=== PATIENT | male | born 1965 | race Caucasian/White ===

== ENCOUNTER 2020-04-25 20:23 | Inpatient (IN) | payer OTHER ==
[2020-04-25] MEDS ORDERED: Sodium Chloride 0.9% 1000 ML 1,000 ML IV STA (20:42)
[2020-04-25] MEDS ORDERED: Ativan 2 MG/1 ML VIAL IV ONE ×2 (20:42→22:01)
--- NOTE | 2020-04-25 20:42 | ERPHSYRPT ---
- History of Present Illness Time Seen by Provider: 04/25/20 20:37 Source: patient, EMS Exam Limitations: clinical condition Physician History: This is a 54-year-old white male who presents for the first time to this emergency department with seizure-like episode followed by post ictal symptoms. 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 In addition he has has a chronic subcutaneous abscess wounds that are being treated as an outpatient with wound care management and intravenous antibiotics on his back. Patient has no known seizure disorder. Patient has had difficulties speaking and level of confusion since the seizure episode. Patient arrives via ambulance service and his spouse will be arriving to the emergency department after obtaining lab work for herself. Patient is a poor historian. Timing/Duration: today Severity: moderate Associated Symptoms: seizure, No shortness of breath, No chest pain Allergies/Adverse Reactions: No Known Drug Allergies Allergy (Verified 04/25/20 21:10) Home Medications: Amlodipine Besylate 10 mg PO DAILY 04/25/20 [History] Baclofen 20 mg PO 04/25/20 [History] Gabapentin 100 mg PO TID PRN 04/25/20 [History] Lisinopril 10 mg [Zestril 10 MG] 10 mg PO DAILY 04/25/20 [History] Metformin HCl 500 mg [Glucophage 500 MG] 500 mg PO DAILY 04/25/20 [History] Methocarbamol 500 mg [Robaxin 500 MG] 500 mg PO TID 04/25/20 [History] Travel Risk - International Travel Have you traveled outside of the country in past 3 weeks: No - Coronavirus Screening Are you exhibiting any of the following symptoms?: No Close contact with a COVID-19 positive Pt in past 14-21 Days: No - Review of Systems Constitutional: No Symptoms Eyes: No Symptoms Ears, Nose, & Throat: No Symptoms Respiratory: No Symptoms Cardiac: No Symptoms Abdominal/Gastrointestinal: No Symptoms Genitourinary Symptoms: No Symptoms Musculoskeletal: No Symptoms Skin: No Symptoms Neurological: No Symptoms Psychological: No Symptoms Endocrine: No Symptoms Hematologic/Lymphatic: No Symptoms Immunological/Allergic: No Symptoms All Other Systems: Reviewed and Negative - Past Medical History Pertinent Past Medical History: Yes - Past Surgical History Past Surgical History: Yes - Nursing Vital Signs Nursing Vital Signs: Initial Vital Signs Temperature 96.8 F 04/25/20 20:33 Pulse Rate 80 04/25/20 20:33 Respiratory Rate 18 04/25/20 20:33 Blood Pressure 133/73 04/25/20 20:33 O2 Sat by Pulse Oximetry 93 L 04/25/20 20:33 Pain Scale Pain Intensity 0 - Physical Exam General Appearance: no apparent distress, alert, anxiety Eye Exam: PERRL/EOMI, eyes nml inspection Ears, Nose, Throat Exam: normal ENT inspection, moist mucous membranes Neck Exam: normal inspection, non-tender, supple, full range of motion Respiratory Exam: normal breath sounds, lungs clear, airway intact, No chest tenderness, No respiratory distress Cardiovascular Exam: regular rate/rhythm, normal heart sounds, normal peripheral pulses Gastrointestinal/Abdomen Exam: soft, normal bowel sounds, other (Ostomy site is pink and functioning.), No tenderness Rectal Exam: not done Back Exam: normal inspection, normal range of motion, No CVA tenderness, No vertebral tenderness Neurologic Exam: alert, oriented x 3, cooperative, 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 Skin Exam: normal color, warm, dry Lymphatic Exam: No adenopathy SpO2 Interpretation: normal O2 Delivery: Room Air - Course Nursing assessment & vital signs reviewed: Yes EKG Interpreted by Me: RATE (87), Sinus Rhythm, NORMAL AXIS, NORMAL INTERVALS, NORMAL QRS, Right Bundle Branch Block, Other (No comparison EKG) Ordered Tests: Active Orders 24 hr Category Date Time Status Other Sales Support Worker STAT Care 04/25/20 20:43 Active EKG-ER Only STAT Care 04/25/20 20:42 Active Pritchard [Catheter-[place] Pritchard] STAT Care 04/25/20 22:09 Active IV Insertion STAT Care 04/25/20 20:42 Active Pulse Oximetry (ED) STAT Care 04/25/20 20:42 Active CHEST 1 VIEW (PORTABLE) Stat Exams 04/25/20 22:34 Taken CHEST WITH CONTRAST [CT] Stat Exams 04/26/20 00:02 Ordered HEAD WITHOUT CONTRAST [CT] Stat Exams 04/25/20 20:43 Taken ABG [ARTERIAL BLOOD GASES] Stat Lab 04/25/20 22:40 Completed CBC W DIFF Stat Lab 04/25/20 20:59 Completed CMP Stat Lab 04/25/20 20:59 Completed CULTURE,URINE Stat Lab 04/25/20 22:25 Received D-DIMER QUANTITATIVE Stat Lab 04/25/20 22:32 Completed INFLUENZA A+B BG Stat Lab 04/25/20 22:32 Completed Manual Differential NC Stat Lab 04/25/20 20:59 Completed POCT GLUCOSE Stat Lab 04/25/20 20:28 Completed UA W/RFX UR CULTURE Stat Lab 04/25/20 22:25 Completed Urine Triage Profile Stat Lab 04/25/20 22:25 Completed Transfer Order Routine Transfer 04/26/20 Ordered Medication Summary Discontinued Medications Generic Name Dose Route Start Last Admin Trade Name Freq PRN Reason Stop Dose Admin Dexamethasone Sodium Phosphate 8 mg 04/26/20 01:20 Decadron 4 Mg Inj IV 04/26/20 01:21 STAT ONE Sodium Chloride 1,000 mls @ 999 mls/hr 04/25/20 20:42 04/25/20 21:57 Sodium Chloride 0.9% 1000 Ml IV 04/25/20 21:42 999 mls/hr .Q1H1M STA Administration Sodium Chloride Confirm 04/25/20 21:56 Sodium Chloride 0.9% 1000 Ml Administered 04/25/20 21:57 Dose 1,000 mls @ ud .ROUTE .STK-MED ONE Levofloxacin/Dextrose 500 mg in 100 mls @ 100 mls/hr 04/25/20 23:06 04/26/20 01:03 Levofloxacin 500mg/100ml D5w IV 04/26/20 00:05 100 ml/hr STAT STA 100 mls/hr Administration Levofloxacin/Dextrose Confirm 04/26/20 01:02 Levofloxacin 500mg/100ml D5w Administered 04/26/20 01:03 Dose 500 mg in 100 mls @ ud IV .STK-MED ONE Lorazepam 1 mg 04/25/20 20:42 Ativan 2 Mg/1 Ml Vial IV 04/25/20 20:43 STAT ONE Lorazepam Confirm 04/25/20 21:42 Ativan 2 Mg/1 Ml Vial Administered 04/25/20 21:43 Dose 2 mg .ROUTE .STK-MED ONE Lorazepam 2 mg 04/25/20 22:01 04/25/20 21:44 Ativan 2 Mg/1 Ml Vial IV 04/25/20 22:02 2 mg STAT ONE Administration Lab/Rad Data: Laboratory Result Diagrams 04/25/20 20:59 04/25/20 20:59 Laboratory Results 04/25/20 04/25/20 04/25/20 Range/Units Unknown 23:55 22:46 WBC (4.0-10.5) K/mm3 RBC (4.1-5.6) M/mm3 Hgb (12.5-18.0) gm/dl Hct (42-50) % MCV (78-100) fl MCH (26-32) pg MCHC (32-36) g/dl RDW (11.5-14.0) % Plt Count (150-450) K/mm3 MPV (7.5-11.0) fl Segmented Neutrophils (36.-66.) % Lymphocytes (Manual) (24-44) % Monocytes (Manual) (0.0-12.0) % Toxic Granulation Platelet Estimate (NORMAL) RBC Morphology D-Dimer (215-500) ng/mL Puncture Site pCO2 (35-45) mmHg pO2 (75-100) mmHg Base Excess (-2.0-2.0) O2 Saturation (94-100) g/dF ABG pH (7.35-7.45) ABG HCO3 (22-28) ABG O2 Sat (Measured) (95-100) % Simone Test A-a Gradient a/A Ratio Hemoglobin Carboxyhemoglobin (0.0-6.9) % THgb Methemoglobin (1.4-1.5) % Temperature C POC O2 Flow Rate % Sodium (137-145) mmol/L Potassium (3.5-5.1) mmol/L Chloride (98-107) mmol/L Carbon Dioxide (22-30) mmol/L Anion Gap (5-15) MEQ/L BUN (9-20) mg/dL Creatinine (0.66-1.25) mg/dL Estimated GFR ML/MIN Glucose (74-106) mg/dL POC Glucometer (74 to 106) mg/dL Calcium (8.4-10.2) mg/dL Total Bilirubin (0.2-1.3) mg/dL AST (17-59) U/L ALT (0-50) U/L Alkaline Phosphatase (38-126) U/L Ammonia < 9 L (9-30) umol/L Serum Total Protein (6.3-8.2) g/dL Albumin (3.5-5.0) g/dL Urine Color (YELLOW) Urine Appearance (CLEAR) Urine pH (5-6) Ur Specific Bone Gap (1.005-1.025) Urine Protein (Negative) Urine Ketones (NEGATIVE) Urine Blood (0-5) Collin/ul Urine Nitrite (NEGATIVE) Urine Bilirubin (NEGATIVE) Urine Urobilinogen (0-1) mg/dL Ur Leukocyte Esterase (NEGATIVE) Urine WBC (Auto) (0-5) /HPF Urine RBC (Auto) (0-2) /HPF U Epithel Cells (Auto) (FEW) /HPF Urine Bacteria (Auto) (NEGATIVE) /HPF Amorphous Crystals (NEGATIVE) /HPF Urine Mucus (Auto) (NEGATIVE) /HPF Urine Culture Reflexed (NO) Urine Glucose (NEGATIVE) mg/dL Stl C. cayetanensis PCR (NEGATIVE) Stl Adenov F 40/41 PCR (NEGATIVE) Stool Astrovirus (PCR) (NEGATIVE) Stool Cryptosporidium PCR (NEGATIVE) Stool EPEC (PCR) (NEGATIVE) Stool EAEC (PCR) (NEGATIVE) Stl E. histolytica PCR (NEGATIVE) Stl P. shigelloides PCR (NEGATIVE) Stool Sapovirus (PCR) (NEGATIVE) St Y.enterocolitica PCR (NEGATIVE) Stool Vibrio (PCR) (NEGATIVE) Stl Vibrio cholerae PCR (NEGATIVE) Stl Norovirus GI/GII PCR (NEGATIVE) Urine Opiates Level (NEGATIVE) Ur Methadone (NEGATIVE) Urine Barbiturates (NEGATIVE) Ur Phencyclidine (PCP) (NEGATIVE) Urine Amphetamine (NEGATIVE) U Benzodiazepine Level (NEGATIVE) Urine Cocaine (NEGATIVE) Urine Marijuana (THC) (NEGATIVE) Campylobacter (PCR) (NEGATIVE) C. difficile (PCR) (NEGATIVE) Enterotoxigenic E. coli (NEGATIVE) E.coli Shiga Toxins (NEGATIVE) Giardia lamblia (NEGATIVE) Monoscreen NEGATIVE (Negative) Influenza Type A Ag (NEGATIVE) Influenza Type B Ag (NEGATIVE) Rotavirus A (PCR) (NEGATIVE) Salmonella (PCR) (NEGATIVE) SARS-CoV-2 (PCR) POSITIVE A (NEGATIVE) Shigella (PCR) (NEGATIVE) Group A Strep Antibody (NEGATIVE) 04/25/20 04/25/20 04/25/20 Range/Units 22:40 22:32 22:32 WBC (4.0-10.5) K/mm3 RBC (4.1-5.6) M/mm3 Hgb (12.5-18.0) gm/dl Hct (42-50) % MCV (78-100) fl MCH (26-32) pg MCHC (32-36) g/dl RDW (11.5-14.0) % Plt Count (150-450) K/mm3 MPV (7.5-11.0) fl Segmented Neutrophils (36.-66.) % Lymphocytes (Manual) (24-44) % Monocytes (Manual) (0.0-12.0) % Toxic Granulation Platelet Estimate (NORMAL) RBC Morphology D-Dimer 2112 H* (215-500) ng/mL Puncture Site LEFT RADIAL pCO2 45 (35-45) mmHg pO2 69 L (75-100) mmHg Base Excess 0.3 (-2.0-2.0) O2 Saturation 91.5 L (94-100) g/dF ABG pH 7.37 (7.35-7.45) ABG HCO3 26.0 (22-28) ABG O2 Sat (Measured) 94.0 L (95-100) % Simone Test NOT APPLICABLE A-a Gradient 231 a/A Ratio 0.23 Hemoglobin 14.2 Carboxyhemoglobin 1.8 (0.0-6.9) % THgb Methemoglobin 0.8 L (1.4-1.5) % Temperature 37.0 C POC O2 Flow Rate 50 % Sodium (137-145) mmol/L Potassium 3.8 (3.5-5.1) mmol/L Chloride (98-107) mmol/L Carbon Dioxide (22-30) mmol/L Anion Gap (5-15) MEQ/L BUN (9-20) mg/dL Creatinine (0.66-1.25) mg/dL Estimated GFR ML/MIN Glucose (74-106) mg/dL POC Glucometer (74 to 106) mg/dL Calcium (8.4-10.2) mg/dL Total Bilirubin (0.2-1.3) mg/dL AST (17-59) U/L ALT (0-50) U/L Alkaline Phosphatase (38-126) U/L Ammonia (9-30) umol/L Serum Total Protein (6.3-8.2) g/dL Albumin (3.5-5.0) g/dL Urine Color (YELLOW) Urine Appearance (CLEAR) Urine pH (5-6) Ur Specific Bone Gap (1.005-1.025) Urine Protein (Negative) Urine Ketones (NEGATIVE) Urine Blood (0-5) Collin/ul Urine Nitrite (NEGATIVE) Urine Bilirubin (NEGATIVE) Urine Urobilinogen (0-1) mg/dL Ur Leukocyte Esterase (NEGATIVE) Urine WBC (Auto) (0-5) /HPF Urine RBC (Auto) (0-2) /HPF U Epithel Cells (Auto) (FEW) /HPF Urine Bacteria (Auto) (NEGATIVE) /HPF Amorphous Crystals (NEGATIVE) /HPF Urine Mucus (Auto) (NEGATIVE) /HPF Urine Culture Reflexed (NO) Urine Glucose (NEGATIVE) mg/dL Stl C. cayetanensis PCR (NEGATIVE) Stl Adenov F 40/41 PCR (NEGATIVE) Stool Astrovirus (PCR) (NEGATIVE) Stool Cryptosporidium PCR (NEGATIVE) Stool EPEC (PCR) (NEGATIVE) Stool EAEC (PCR) (NEGATIVE) Stl E. histolytica PCR (NEGATIVE) Stl P. shigelloides PCR (NEGATIVE) Stool Sapovirus (PCR) (NEGATIVE) St Y.enterocolitica PCR (NEGATIVE) Stool Vibrio (PCR) (NEGATIVE) Stl Vibrio cholerae PCR (NEGATIVE) Stl Norovirus GI/GII PCR (NEGATIVE) Urine Opiates Level (NEGATIVE) Ur Methadone (NEGATIVE) Urine Barbiturates (NEGATIVE) Ur Phencyclidine (PCP) (NEGATIVE) Urine Amphetamine (NEGATIVE) U Benzodiazepine Level (NEGATIVE) Urine Cocaine (NEGATIVE) Urine Marijuana (THC) (NEGATIVE) Campylobacter (PCR) (NEGATIVE) C. difficile (PCR) (NEGATIVE) Enterotoxigenic E. coli (NEGATIVE) E.coli Shiga Toxins (NEGATIVE) Giardia lamblia (NEGATIVE) Monoscreen (Negative) Influenza Type A Ag (NEGATIVE) Influenza Type B Ag (NEGATIVE) Rotavirus A (PCR) (NEGATIVE) Salmonella (PCR) (NEGATIVE) SARS-CoV-2 (PCR) (NEGATIVE) Shigella (PCR) (NEGATIVE) Group A Strep Antibody NOT DETECTED (NEGATIVE) 04/25/20 04/25/20 04/25/20 Range/Units 22:32 22:25 22:25 WBC (4.0-10.5) K/mm3 RBC (4.1-5.6) M/mm3 Hgb (12.5-18.0) gm/dl Hct (42-50) % MCV (78-100) fl MCH (26-32) pg MCHC (32-36) g/dl RDW (11.5-14.0) % Plt Count (150-450) K/mm3 MPV (7.5-11.0) fl Segmented Neutrophils (36.-66.) % Lymphocytes (Manual) (24-44) % Monocytes (Manual) (0.0-12.0) % Toxic Granulation Platelet Estimate (NORMAL) RBC Morphology D-Dimer (215-500) ng/mL Puncture Site pCO2 (35-45) mmHg pO2 (75-100) mmHg Base Excess (-2.0-2.0) O2 Saturation (94-100) g/dF ABG pH (7.35-7.45) ABG HCO3 (22-28) ABG O2 Sat (Measured) (95-100) % Simone Test A-a Gradient a/A Ratio Hemoglobin Carboxyhemoglobin (0.0-6.9) % THgb Methemoglobin (1.4-1.5) % Temperature C POC O2 Flow Rate % Sodium (137-145) mmol/L Potassium (3.5-5.1) mmol/L Chloride (98-107) mmol/L Carbon Dioxide (22-30) mmol/L Anion Gap (5-15) MEQ/L BUN (9-20) mg/dL Creatinine (0.66-1.25) mg/dL Estimated GFR ML/MIN Glucose (74-106) mg/dL POC Glucometer (74 to 106) mg/dL Calcium (8.4-10.2) mg/dL Total Bilirubin (0.2-1.3) mg/dL AST (17-59) U/L ALT (0-50) U/L Alkaline Phosphatase (38-126) U/L Ammonia (9-30) umol/L Serum Total Protein (6.3-8.2) g/dL Albumin (3.5-5.0) g/dL Urine Color DRU (YELLOW) Urine Appearance CLOUDY (CLEAR) Urine pH 6.0 (5-6) Ur Specific Bone Gap 1.022 (1.005-1.025) Urine Protein >=500 (Negative) Urine Ketones SMALL (NEGATIVE) Urine Blood SMALL (0-5) Collin/ul Urine Nitrite POSITIVE (NEGATIVE) Urine Bilirubin MODERATE (NEGATIVE) Urine Urobilinogen NEGATIVE (0-1) mg/dL Ur Leukocyte Esterase LARGE (NEGATIVE) Urine WBC (Auto) >100 (0-5) /HPF Urine RBC (Auto) 51-100 (0-2) /HPF U Epithel Cells (Auto) NONE (FEW) /HPF Urine Bacteria (Auto) RARE (NEGATIVE) /HPF Amorphous Crystals FEW (NEGATIVE) /HPF Urine Mucus (Auto) SLIGHT (NEGATIVE) /HPF Urine Culture Reflexed YES (NO) Urine Glucose NEGATIVE (NEGATIVE) mg/dL Stl C. cayetanensis PCR (NEGATIVE) Stl Adenov F 40/41 PCR (NEGATIVE) Stool Astrovirus (PCR) (NEGATIVE) Stool Cryptosporidium PCR (NEGATIVE) Stool EPEC (PCR) (NEGATIVE) Stool EAEC (PCR) (NEGATIVE) Stl E. histolytica PCR (NEGATIVE) Stl P. shigelloides PCR (NEGATIVE) Stool Sapovirus (PCR) (NEGATIVE) St Y.enterocolitica PCR (NEGATIVE) Stool Vibrio (PCR) (NEGATIVE) Stl Vibrio cholerae PCR (NEGATIVE) Stl Norovirus GI/GII PCR (NEGATIVE) Urine Opiates Level POSITIVE (NEGATIVE) Ur Methadone NEGATIVE (NEGATIVE) Urine Barbiturates NEGATIVE (NEGATIVE) Ur Phencyclidine (PCP) NEGATIVE (NEGATIVE) Urine Amphetamine NEGATIVE (NEGATIVE) U Benzodiazepine Level NEGATIVE (NEGATIVE) Urine Cocaine NEGATIVE (NEGATIVE) Urine Marijuana (THC) NEGATIVE (NEGATIVE) Campylobacter (PCR) (NEGATIVE) C. difficile (PCR) (NEGATIVE) Enterotoxigenic E. coli (NEGATIVE) E.coli Shiga Toxins (NEGATIVE) Giardia lamblia (NEGATIVE) Monoscreen (Negative) Influenza Type A Ag NEGATIVE (NEGATIVE) Influenza Type B Ag NEGATIVE (NEGATIVE) Rotavirus A (PCR) (NEGATIVE) Salmonella (PCR) (NEGATIVE) SARS-CoV-2 (PCR) (NEGATIVE) Shigella (PCR) (NEGATIVE) Group A Strep Antibody (NEGATIVE) 04/25/20 04/25/20 04/25/20 Range/Units 22:02 20:59 20:59 WBC 9.0 (4.0-10.5) K/mm3 RBC 5.11 (4.1-5.6) M/mm3 Hgb 15.0 (12.5-18.0) gm/dl Hct 46.5 (42-50) % MCV 91.0 (78-100) fl MCH 29.4 (26-32) pg MCHC 32.3 (32-36) g/dl RDW 13.9 (11.5-14.0) % Plt Count 361 (150-450) K/mm3 MPV 10.5 (7.5-11.0) fl Segmented Neutrophils 83 H (36.-66.) % Lymphocytes (Manual) 9 L (24-44) % Monocytes (Manual) 8 (0.0-12.0) % Toxic Granulation 1+ Platelet Estimate NORMAL (NORMAL) RBC Morphology NORMAL D-Dimer (215-500) ng/mL Puncture Site pCO2 (35-45) mmHg pO2 (75-100) mmHg Base Excess (-2.0-2.0) O2 Saturation (94-100) g/dF ABG pH (7.35-7.45) ABG HCO3 (22-28) ABG O2 Sat (Measured) (95-100) % Simone Test A-a Gradient a/A Ratio Hemoglobin Carboxyhemoglobin (0.0-6.9) % THgb Methemoglobin (1.4-1.5) % Temperature C POC O2 Flow Rate % Sodium 140 (137-145) mmol/L Potassium 4.0 (3.5-5.1) mmol/L Chloride 105 (98-107) mmol/L Carbon Dioxide 27 (22-30) mmol/L Anion Gap 12.1 (5-15) MEQ/L BUN 23 H (9-20) mg/dL Creatinine 1.12 (0.66-1.25) mg/dL Estimated GFR > 60.0 ML/MIN Glucose 188 H (74-106) mg/dL POC Glucometer (74 to 106) mg/dL Calcium 9.3 (8.4-10.2) mg/dL Total Bilirubin 1.10 (0.2-1.3) mg/dL AST 40 (17-59) U/L ALT 42 (0-50) U/L Alkaline Phosphatase 83 (38-126) U/L Ammonia (9-30) umol/L Serum Total Protein 8.4 H (6.3-8.2) g/dL Albumin 4.0 (3.5-5.0) g/dL Urine Color (YELLOW) Urine Appearance (CLEAR) Urine pH (5-6) Ur Specific Bone Gap (1.005-1.025) Urine Protein (Negative) Urine Ketones (NEGATIVE) Urine Blood (0-5) Collin/ul Urine Nitrite (NEGATIVE) Urine Bilirubin (NEGATIVE) Urine Urobilinogen (0-1) mg/dL Ur Leukocyte Esterase (NEGATIVE) Urine WBC (Auto) (0-5) /HPF Urine RBC (Auto) (0-2) /HPF U Epithel Cells (Auto) (FEW) /HPF Urine Bacteria (Auto) (NEGATIVE) /HPF Amorphous Crystals (NEGATIVE) /HPF Urine Mucus (Auto) (NEGATIVE) /HPF Urine Culture Reflexed (NO) Urine Glucose (NEGATIVE) mg/dL Stl C. cayetanensis PCR NEGATIVE (NEGATIVE) Stl Adenov F 40/41 PCR NEGATIVE (NEGATIVE) Stool Astrovirus (PCR) NEGATIVE (NEGATIVE) Stool Cryptosporidium PCR NEGATIVE (NEGATIVE) Stool EPEC (PCR) NEGATIVE (NEGATIVE) Stool EAEC (PCR) NEGATIVE (NEGATIVE) Stl E. histolytica PCR NEGATIVE (NEGATIVE) Stl P. shigelloides PCR NEGATIVE (NEGATIVE) Stool Sapovirus (PCR) NEGATIVE (NEGATIVE) St Y.enterocolitica PCR NEGATIVE (NEGATIVE) Stool Vibrio (PCR) NEGATIVE (NEGATIVE) Stl Vibrio cholerae PCR NEGATIVE (NEGATIVE) Stl Norovirus GI/GII PCR NEGATIVE (NEGATIVE) Urine Opiates Level (NEGATIVE) Ur Methadone (NEGATIVE) Urine Barbiturates (NEGATIVE) Ur Phencyclidine (PCP) (NEGATIVE) Urine Amphetamine (NEGATIVE) U Benzodiazepine Level (NEGATIVE) Urine Cocaine (NEGATIVE) Urine Marijuana (THC) (NEGATIVE) Campylobacter (PCR) NEGATIVE (NEGATIVE) C. difficile (PCR) NEGATIVE (NEGATIVE) Enterotoxigenic E. coli NEGATIVE (NEGATIVE) E.coli Shiga Toxins NEGATIVE (NEGATIVE) Giardia lamblia NEGATIVE (NEGATIVE) Monoscreen (Negative) Influenza Type A Ag (NEGATIVE) Influenza Type B Ag (NEGATIVE) Rotavirus A (PCR) NEGATIVE (NEGATIVE) Salmonella (PCR) NEGATIVE (NEGATIVE) SARS-CoV-2 (PCR) (NEGATIVE) Shigella (PCR) NEGATIVE (NEGATIVE) Group A Strep Antibody (NEGATIVE) 04/25/20 Range/Units 20:28 WBC (4.0-10.5) K/mm3 RBC (4.1-5.6) M/mm3 Hgb (12.5-18.0) gm/dl Hct (42-50) % MCV (78-100) fl MCH (26-32) pg MCHC (32-36) g/dl RDW (11.5-14.0) % Plt Count (150-450) K/mm3 MPV (7.5-11.0) fl Segmented Neutrophils (36.-66.) % Lymphocytes (Manual) (24-44) % Monocytes (Manual) (0.0-12.0) % Toxic Granulation Platelet Estimate (NORMAL) RBC Morphology D-Dimer (215-500) ng/mL Puncture Site pCO2 (35-45) mmHg pO2 (75-100) mmHg Base Excess (-2.0-2.0) O2 Saturation (94-100) g/dF ABG pH (7.35-7.45) ABG HCO3 (22-28) ABG O2 Sat (Measured) (95-100) % Simone Test A-a Gradient a/A Ratio Hemoglobin Carboxyhemoglobin (0.0-6.9) % THgb Methemoglobin (1.4-1.5) % Temperature C POC O2 Flow Rate % Sodium (137-145) mmol/L Potassium (3.5-5.1) mmol/L Chloride (98-107) mmol/L Carbon Dioxide (22-30) mmol/L Anion Gap (5-15) MEQ/L BUN (9-20) mg/dL Creatinine (0.66-1.25) mg/dL Estimated GFR ML/MIN Glucose (74-106) mg/dL POC Glucometer 176 H (74 to 106) mg/dL Calcium (8.4-10.2) mg/dL Total Bilirubin (0.2-1.3) mg/dL AST (17-59) U/L ALT (0-50) U/L Alkaline Phosphatase (38-126) U/L Ammonia (9-30) umol/L Serum Total Protein (6.3-8.2) g/dL Albumin (3.5-5.0) g/dL Urine Color (YELLOW) Urine Appearance (CLEAR) Urine pH (5-6) Ur Specific Bone Gap (1.005-1.025) Urine Protein (Negative) Urine Ketones (NEGATIVE) Urine Blood (0-5) Collin/ul Urine Nitrite (NEGATIVE) Urine Bilirubin (NEGATIVE) Urine Urobilinogen (0-1) mg/dL Ur Leukocyte Esterase (NEGATIVE) Urine WBC (Auto) (0-5) /HPF Urine RBC (Auto) (0-2) /HPF U Epithel Cells (Auto) (FEW) /HPF Urine Bacteria (Auto) (NEGATIVE) /HPF Amorphous Crystals (NEGATIVE) /HPF Urine Mucus (Auto) (NEGATIVE) /HPF Urine Culture Reflexed (NO) Urine Glucose (NEGATIVE) mg/dL Stl C. cayetanensis PCR (NEGATIVE) Stl Adenov F 40/41 PCR (NEGATIVE) Stool Astrovirus (PCR) (NEGATIVE) Stool Cryptosporidium PCR (NEGATIVE) Stool EPEC (PCR) (NEGATIVE) Stool EAEC (PCR) (NEGATIVE) Stl E. histolytica PCR (NEGATIVE) Stl P. shigelloides PCR (NEGATIVE) Stool Sapovirus (PCR) (NEGATIVE) St Y.enterocolitica PCR (NEGATIVE) Stool Vibrio (PCR) (NEGATIVE) Stl Vibrio cholerae PCR (NEGATIVE) Stl Norovirus GI/GII PCR (NEGATIVE) Urine Opiates Level (NEGATIVE) Ur Methadone (NEGATIVE) Urine Barbiturates (NEGATIVE) Ur Phencyclidine (PCP) (NEGATIVE) Urine Amphetamine (NEGATIVE) U Benzodiazepine Level (NEGATIVE) Urine Cocaine (NEGATIVE) Urine Marijuana (THC) (NEGATIVE) Campylobacter (PCR) (NEGATIVE) C. difficile (PCR) (NEGATIVE) Enterotoxigenic E. coli (NEGATIVE) E.coli Shiga Toxins (NEGATIVE) Giardia lamblia (NEGATIVE) Monoscreen (Negative) Influenza Type A Ag (NEGATIVE) Influenza Type B Ag (NEGATIVE) Rotavirus A (PCR) (NEGATIVE) Salmonella (PCR) (NEGATIVE) SARS-CoV-2 (PCR) (NEGATIVE) Shigella (PCR) (NEGATIVE) Group A Strep Antibody (NEGATIVE) - Progress Progress: improved, re-examined Progress Note: 04/26/20 01:22 Chest x-ray shows bilateral diffuse infiltrates Medical decision making: This patient has tested positive for COVID-19 virus. He has COVID-19 pneumonia. He also has urosepsis. His D-dimer was elevated and CTA of the chest is pending. Clinically, the patient is now much more awake and alert and conversing and interacting. I spoke with Dr. Hartmann, our Covid unit hospitalist, and discussed the patient history, condition, x-ray findings as well has EKG findings and laboratory results. He accepts the patient for admission into the Covid unit. We will place the patient on antibiotics to cover urosepsis, provide dexamethasone and place him on remdesivir. Discussed with Dr.: Other (Dr. Hartmann) Counseled pt/family regarding: lab results, diagnosis, need for follow-up, rad results - Departure Departure Disposition: In-patient Admission Clinical Impression: Sepsis, New onset seizure, Pneumonia due to COVID-19 virus, Hypoxia Condition: Fair Critical Care Time: Yes Critical Care Time(excluding separately billable procedures): Critical 30-74 mins Referrals: CASEY MCNULTY MD [Primary Care Provider] -
[2020-04-25 21:03] LABS: Hematocrit 46.5 % (42-50); Mean Corpuscular Hemoglobin 29.4 pg (26-32); Mean Corpuscular Hgb Concent. 32.3 g/dl (32-36); Mean Platelet Volume 10.5 fl (7.5-11.0); Platelet Count 361 K/mm3 (150-450); Red Blood Count 5.11 M/mm3 (4.1-5.6); Red Cell Distribution Width 13.9 % (11.5-14.0)
[2020-04-25 21:18] LABS: ALKALINE PHOSPHATASE 83 U/L (38-126); ANION GAP 12.1 MEQ/L (5-15); BLOOD UREA NITROGEN 23 mg/dL (9-20); CHLORIDE 105 mmol/L (98-107); Calcium 9.3 mg/dL (8.4-10.2); Carbon Dioxide 27 mmol/L (22-30); Creatinine 1 1.12 mg/dL (0.66-1.25); EST GLOMERULAR FILTRATION RATE > 60.0 ML/MIN; Glucose 188 mg/dL (74-106); SGOT/AST 40 U/L (17-59); SGPT/ALT 42 U/L (0-50); SODIUM 140 mmol/L (137-145); Total Protein 8.4 g/dL (6.3-8.2)
[2020-04-25] MEDS ORDERED: Ativan 2 MG/1 ML VIAL ONE (21:42)
[2020-04-25] MEDS ORDERED: Sodium Chloride 0.9% 1000 ML 1,000 ML ONE (21:56)
[2020-04-25 22:46] LABS: A-aADO2 231; ABG HEMOGLOBIN 14.2; ABG POTASSIUM 3.8 (3.5-5.1); ABG SITE LEFT RADIAL; ARTERIAL BLOOD GAS BASE EXCESS 0.3 (-2.0-2.0); ARTERIAL BLOOD GAS FIO2 50 %; ARTERIAL BLOOD GAS PCO2 45 mmHg (35-45); ARTERIAL BLOOD GAS PO2 69 mmHg (75-100); ARTERIAL BLOOD GAS pH 7.37 (7.35-7.45); CARBOXYHEMOGLOBIN 1.8 % THgb (0.0-6.9); HGB O2 SAT 91.5 g/dF (94-100); Methhemoglobin 0.8 % (1.4-1.5); paO2 pAO1 0.23
[2020-04-25 22:50] LABS: Amphetamine,Urine NEGATIVE (NEGATIVE); Barbiturate,Urine NEGATIVE (NEGATIVE); Benzodiazepine,Urine NEGATIVE (NEGATIVE); Cocaine,Urine NEGATIVE (NEGATIVE); Methadone,Urine NEGATIVE (NEGATIVE); Opiate,Urine POSITIVE (NEGATIVE); PCP,Urine NEGATIVE (NEGATIVE); THC,Urine NEGATIVE (NEGATIVE)
[2020-04-25 22:51] LABS: Amourphous Crystal FEW /HPF (NEGATIVE); Appearance CLOUDY (CLEAR); Bacteria RARE /HPF (NEGATIVE); Bilirubin MODERATE (NEGATIVE); Blood SMALL Ery/ul (0-5); Glucose NEGATIVE (NEGATIVE); Ketones SMALL (NEGATIVE); Leukocyte Esterase LARGE (NEGATIVE); Mucus SLIGHT /HPF (NEGATIVE); Nitrite POSITIVE (NEGATIVE); Protein,Urine Dip >=500 (Negative); RBC 51-100 /HPF (0-2); Specific Gravity 1.022 (1.005-1.025); Urobilinogen NEGATIVE mg/dL (0-1); WBC >100 /HPF (0-5)
[2020-04-25] MEDS ORDERED: Levofloxacin 500MG/100ML D5W 500 MG/100 ML BAG IV STA (23:06)
[2020-04-25 23:23] LABS: Lymphocytes 9 % (24-44); Monocyte 8 % (0.0-12.0); Neutrophils 83 % (36.-66.); Platelet Estimate NORMAL (NORMAL); Total Cells Counted 100; Toxic Granulation 1+
[2020-04-25 23:53] LABS: INFLUENZA A NEGATIVE (NEGATIVE); INFLUENZA B NEGATIVE (NEGATIVE)
[2020-04-26 00:33] LABS: C. Difficile Organism NEGATIVE (NEGATIVE); Campylobacter NEGATIVE (NEGATIVE); Plesiomonas shigelloides NEGATIVE (NEGATIVE); Salmonella NEGATIVE (NEGATIVE); Vibrio NEGATIVE (NEGATIVE); Vibrio cholerae NEGATIVE (NEGATIVE); Yersinia enterocolitica NEGATIVE (NEGATIVE)
[2020-04-26 00:34] LABS: Adenovirus F 40/41 NEGATIVE (NEGATIVE); Astrovirus NEGATIVE (NEGATIVE); Cryptosporidium NEGATIVE (NEGATIVE); Cyclospora cayentanensis NEGATIVE (NEGATIVE); Entamoeaba histolytica NEGATIVE (NEGATIVE); Enteroaggregative E.coli NEGATIVE (NEGATIVE); Enteropathogenic E.coli NEGATIVE (NEGATIVE); Enterotoxigenic E.coli NEGATIVE (NEGATIVE); Giardia lamblia NEGATIVE (NEGATIVE); Norovirus GI/GII NEGATIVE (NEGATIVE); Rotavirus A NEGATIVE (NEGATIVE); Sapovirus NEGATIVE (NEGATIVE); Shiga-like toxin prod.E.coli NEGATIVE (NEGATIVE)
[2020-04-26] MEDS ORDERED: Levofloxacin 500MG/100ML D5W 500 MG/100 ML BAG IV ONE (01:02)
[2020-04-26] MEDS ORDERED: Decadron 4 MG INJ IV ONE (01:20)
[2020-04-26] MEDS ORDERED: Decadron 4 MG INJ ONE (02:46)
[2020-04-26] MEDS ORDERED: TYLENOL 325 MG PO PRN (03:21)
[2020-04-26] MEDS ORDERED: Decadron 4 MG INJ IV SCH (03:21)
[2020-04-26] MEDS ORDERED: REMDESIVIR 100 MG in Sodium Chloride 0.9% 100 ML IVPB 100 ML IV SCH (03:21)
[2020-04-26] MEDS ORDERED: Zofran 4 MG/2 ML VIAL IV PRN (03:21)
[2020-04-26] MEDS ORDERED: REMDESIVIR 200 MG in Sodium Chloride 0.9% 250 ML 250 ML IV ONE (03:21)
[2020-04-26] MEDS ORDERED: Ativan 2 MG/1 ML VIAL IV PRN ×2 (03:21→08:35)
[2020-04-26] MEDS ORDERED: Sodium Chloride 0.9% 250 ML 250 ML IV ONE (05:04)
[2020-04-26] MEDS ORDERED: REMDESIVIR IV ONE (05:04)
[2020-04-26 05:31] LABS: Absolute Neutrophil Ct (ANC) 8.69 (1.4-6.9); BASOPHIL % 0.1 % (0.0-0.4); Basophil (Absolute #) 0.01 (0-0.4); Eosinophil % 0.2 % (0.00-5.0); Eosinophil (Absolute #) 0.02 (0-0.5); Hematocrit 43.6 % (42-50); Lymphocyte (Absolute #) 0.46 (1.0-4.6); Lymphocytes % 4.8 % (24.0-44.0); Mean Cell Volume 91.6 fl (78-100); Mean Corpuscular Hemoglobin 29.4 pg (26-32); Mean Corpuscular Hgb Concent. 32.1 g/dl (32-36); Mean Platelet Volume 10.4 fl (7.5-11.0); Monocyte (Absolute #) 0.35 (0.0-1.3); Monocytes % 3.7 % (0.0-12.0); Neutrophil % 91.2 % (36.0-66.0); Platelet Count 334 K/mm3 (150-450); Red Blood Count 4.76 M/mm3 (4.1-5.6); Red Cell Distribution Width 13.8 % (11.5-14.0); White Blood Count 9.5 K/mm3 (4.0-10.5)
[2020-04-26 05:44] LABS: ANION GAP 11.5 MEQ/L (5-15); BLOOD UREA NITROGEN 24 mg/dL (9-20); CHLORIDE 104 mmol/L (98-107); Calcium 8.9 mg/dL (8.4-10.2); Carbon Dioxide 27 mmol/L (22-30); Creatinine 1 1.07 mg/dL (0.66-1.25); EST GLOMERULAR FILTRATION RATE > 60.0 ML/MIN; Glucose 147 mg/dL (74-106); Potassium 4.3 mmol/L (3.5-5.1); SODIUM 139 mmol/L (137-145)
[2020-04-26] MEDS: Sodium Chloride 0.9% 1000 ML 1,000 ML IV SCH ×2 (06:18→20:28)
[2020-04-26 06:42] LABS: Slide Review 1 YES
[2020-04-26] MEDS ORDERED: TYLENOL EXTRA STRENGTH 500 MG PO PRN (08:34)
[2020-04-26] MEDS ORDERED: Neurontin 100 MG PO PRN (08:45)
--- NOTE | 2020-04-26 08:52 | XRAY ---
Indication: Cough and congestion. Elevated d-dimer. Positive Covid 19. Multiple contiguous axial images obtained through the chest using 80 cc Isovue 370 contrast and PE protocol. Comparison: None. There is good opacification of the pulmonary arteries to include the lobar and segmental branches. No pulmonary embolus. Heart is not enlarged. Aorta is normal in course and caliber with minimal scattered calcifications. Small right hilar calcified nodes. Mild prominent mediastinal and bilateral hilar lymph nodes, largest on the left measuring 1.2 x 2.1 cm. Lungs demonstrates diffuse bilateral patchy airspace disease without consolidation or large effusion. Incidental small right upper lobe calcified granuloma. Bony thorax intact with mild degenerative changes throughout the spine. Limited upper abdomen demonstrates fatty liver, 7 mm left lobe hepatic cyst, and multiple bilateral renal cysts, largest right upper pole measuring 3 cm. Impression: 1. Negative pulmonary embolus. 2. Diffuse bilateral airspace disease without consolidation/effusion. 3. Prominent mediastinal and bilateral hilar lymph nodes presumed reactive. 4. Incidental fatty liver, tiny hepatic cyst, bilateral renal cysts, and old granulomatous disease. Comment: Preliminary interpretation was made by [facility]. No critical discrepancy.
--- NOTE | 2020-04-26 08:54 | XRAY ---
Indication: Seizure. Multiple contiguous axial images obtained through the head without contrast. Comparison: None Normal appearing brain parenchyma, ventricles, and bony calvarium. The visualized paranasal sinuses and mastoid air cells are clear. Impression: Normal CT head without contrast exam.
--- NOTE | 2020-04-26 08:54 | XRAY ---
Indication: Cough and congestion. Comparison: None Portable chest demonstrates diffuse bilateral airspace disease without consolidation/large effusion. Tiny right upper lobe calcified granuloma. Heart is not enlarged. Bony thorax intact with mild degenerative changes.
[2020-04-26] MEDS ORDERED: cereBYX 50 MG/ML*** 1,000 MG in Sodium Chloride 0.9% 100 ML IVPB 100 ML IV SCH (09:00)
[2020-04-26] MEDS: HUMULIN R SQ PRN (09:28)
--- NOTE | 2020-04-26 09:34 | HP ---
CHIEF COMPLAINT: Seizure. HISTORY OF PRESENT ILLNESS: The patient had a seizure last night and was postictal. He has never had seizures before, according to the patient. He lives his but she does not answer this morning. I assume she was up all night. He has chronic subcutaneous abscess wounds on his back being treated with outpatient IV antibiotic treatment. He has no seizure disorder. In the emergency room, he was very confused and had trouble speaking which has continued this morning. CT of the head was normal. He tested positive for COVID. He denies shortness of breath, chest pain or change in bowel movements. MEDICATIONS: Norvasc 10 q.d., Baclofen 20 q.d., gabapentin 100 t.i.d. for pain, Lisinopril 10 q.d. for blood pressure, Metformin 500 q.d. for diabetes, Robaxin 500 t.i.d. for back pain. ALLERGIES: NKDA. PAST MEDICAL HISTORY: Chronic back pain. He had a spinal abscess after a surgery some years ago. He has got some subcutaneous boils on his back. REVIEW OF SYSTEMS: HEENT: He seems to hear and see okay, denies any problems. CARDIAC: He denies any symptoms. No heart attacks or heart failure. ABDOMEN: No nausea or vomiting. BACK/EXTREMITIES: The patient's severe chronic back pain radiating around sometimes to both legs. NEUROLOGIC: The patient seems to not understand what a seizure is. He stated he never had any. He said that he has a headache presently. PHYSICAL EXAMINATION: VITAL SIGNS: Temperature 96F, pulse 80, respirations 16, blood pressure 120/70. O2 saturation 93% on 3 liters. GENERAL: The patient is slightly ill kept. He is confused. He was combative a little bit earlier. Anxious. States he has not slept. He denies pain. HEENT: Pupils equal and reactive to light. NECK: Supple without adenopathy. CHEST: Clear. CVS: No murmurs or gallops. ABDOMEN: No tenderness. He has a colostomy on the left side. IMPRESSION: 1) The patient had new onset seizure probably from COVID. CT of the head was normal. His blood work is normal. 2) He also has abscesses on his back. We are going to find out exactly what they were treating it with. He does not seem to be severely ill and he has a normal white count. 3) Change in mentation. I think this is postictal acutely from the infection from the COVID to the brain unknown at this time. I will have to get more history. PLAN: The patient will be continued on levofloxacin, lorazepam PRN seizure, home medications, plus Remdesivir, Decadron and anticoagulated.
[2020-04-26] MEDS ORDERED: Glucophage 500 MG PO SCH (10:00)
[2020-04-26] MEDS ORDERED: NON-FORMULARY ITEM (Amlodipine Besylate [Amlodipine Besylate] 10 MG) PO SCH (10:00)
[2020-04-26] MEDS: DECADRON 10MG INJ. IV SCH ×2 (12:40→22:31)
[2020-04-26] MEDS: NORVASC 5 MG PO SCH (12:42)
[2020-04-26] MEDS: Robaxin 500 MG PO SCH ×3 (12:42→22:30)
[2020-04-26] MEDS: Zestril 10 MG PO SCH (12:43)
[2020-04-26] MEDS: Dilantin 100 MG PO SCH (12:43)
[2020-04-26] MEDS ORDERED: NON-FORMULARY ITEM (Baclofen [Baclofen] 20 MG) PO SCH (17:00)
[2020-04-26] MEDS: LIORESAL 10 MG PO SCH ×2 (18:42→22:31)
[2020-04-26] MEDS: OXYCODONE-ACETAMINOPHEN 10-325 PO PRN (18:43)
[2020-04-26] MEDS ORDERED: Levofloxacin 500MG/100ML D5W 500 MG/100 ML BAG IV SCH (22:00)
[2020-04-26] MEDS: Neurontin 100 MG PO SCH (22:31)
[2020-04-27] MEDS: Sodium Chloride 0.9% 1000 ML 1,000 ML IV SCH ×3 (03:42→17:16)
[2020-04-27 06:30] LABS: Hematocrit 41.5 % (42-50); Hemoglobin 13.2 gm/dl (12.5-18.0); Mean Corpuscular Hemoglobin 29.3 pg (26-32); Mean Corpuscular Hgb Concent. 31.8 g/dl (32-36); Mean Platelet Volume 10.2 fl (7.5-11.0); Platelet Count 433 K/mm3 (150-450); Red Blood Count 4.51 M/mm3 (4.1-5.6); Red Cell Distribution Width 13.6 % (11.5-14.0)
[2020-04-27 06:45] LABS: ALBUMIN 3.6 g/dL (3.5-5.0); ALKALINE PHOSPHATASE 63 U/L (38-126); ANION GAP 9.3 MEQ/L (5-15); BLOOD UREA NITROGEN 23 mg/dL (9-20); CHLORIDE 106 mmol/L (98-107); Carbon Dioxide 27 mmol/L (22-30); Creatinine 1 0.99 mg/dL (0.66-1.25); EST GLOMERULAR FILTRATION RATE > 60.0 ML/MIN; Glucose 198 mg/dL (74-106); Potassium 4.9 mmol/L (3.5-5.1); SGOT/AST 25 U/L (17-59); SGPT/ALT 28 U/L (0-50); SODIUM 137 mmol/L (137-145); Total Protein 7.2 g/dL (6.3-8.2)
[2020-04-27] MEDS: HOLD METFORMIN PRODUCTS FOR 48 HOURS MC SCH ×2 (08:10→10:58)
[2020-04-27] MEDS ORDERED: cereBYX 50 MG/ML*** 500 MG in Sodium Chloride 0.9% 100 ML IVPB 100 ML IV ONE (08:40)
[2020-04-27] MEDS: ENOXAPARIN SODIUM SQ SCH (10:57)
[2020-04-27] MEDS: REMDESIVIR 100 MG in Sodium Chloride 0.9% 100 ML IVPB 100 ML IV SCH (10:57)
[2020-04-27] MEDS: LIORESAL 10 MG PO SCH ×4 (10:58→21:07)
[2020-04-27] MEDS: Neurontin 100 MG PO SCH ×3 (10:59→21:06)
[2020-04-27] MEDS: Robaxin 500 MG PO SCH ×3 (11:00→21:07)
[2020-04-27] MEDS: DECADRON 10MG INJ. IV SCH ×2 (11:01→21:06)
[2020-04-27] MEDS: Dilantin 100 MG PO SCH (11:01)
[2020-04-27] MEDS: NORVASC 5 MG PO SCH (11:03)
[2020-04-27] MEDS: Zestril 10 MG PO SCH (11:04)
[2020-04-27] MEDS: HUMULIN R SQ PRN ×2 (12:03→21:07)
[2020-04-27] MEDS: OXYCODONE-ACETAMINOPHEN 10-325 PO PRN (12:03)
[2020-04-28] MEDS: OXYCODONE-ACETAMINOPHEN 10-325 PO PRN ×3 (09:13→21:47)
[2020-04-28] MEDS: Neurontin 100 MG PO SCH ×3 (09:23→21:48)
[2020-04-28] MEDS: Dilantin 100 MG PO SCH (09:23)
[2020-04-28] MEDS: DECADRON 10MG INJ. IV SCH ×2 (09:23→21:47)
[2020-04-28] MEDS: NORVASC 5 MG PO SCH (09:23)
[2020-04-28] MEDS: Zestril 10 MG PO SCH (09:24)
[2020-04-28] MEDS: Robaxin 500 MG PO SCH ×3 (09:24→21:48)
[2020-04-28] MEDS: ENOXAPARIN SODIUM SQ SCH (09:24)
[2020-04-28] MEDS: HOLD METFORMIN PRODUCTS FOR 48 HOURS MC SCH (09:24)
[2020-04-28] MEDS: LIORESAL 10 MG PO SCH ×4 (09:24→21:48)
[2020-04-28] MEDS ORDERED: Dilantin 100 MG PO ONE (09:56)
[2020-04-28] MEDS ORDERED: Dilantin 100 MG PO SCH (09:57)
[2020-04-28] MEDS: REMDESIVIR 100 MG in Sodium Chloride 0.9% 100 ML IVPB 100 ML IV SCH (10:09)
[2020-04-28] MEDS: HUMULIN R SQ PRN ×3 (11:34→21:48)
[2020-04-28] MEDS: Cipro 500 MG PO SCH (21:48)
[2020-04-29] MEDS ORDERED: Dilantin 100 MG PO SCH (10:00)
[2020-04-29] MEDS: Cipro 500 MG PO SCH ×2 (10:11→21:18)
[2020-04-29] MEDS: Zestril 10 MG PO SCH (10:11)
[2020-04-29] MEDS: LIORESAL 10 MG PO SCH ×4 (10:11→21:19)
[2020-04-29] MEDS: NORVASC 5 MG PO SCH (10:11)
[2020-04-29] MEDS: DECADRON 10MG INJ. IV SCH ×2 (10:11→21:18)
[2020-04-29] MEDS: Glucophage 500 MG PO SCH (10:12)
[2020-04-29] MEDS: Robaxin 500 MG PO SCH ×3 (10:13→21:19)
[2020-04-29] MEDS: Dilantin 100 MG PO SCH ×2 (10:17→21:18)
[2020-04-29] MEDS: Neurontin 100 MG PO SCH ×3 (10:18→21:19)
[2020-04-29] MEDS: ENOXAPARIN SODIUM SQ SCH (10:18)
[2020-04-29] MEDS: REMDESIVIR 100 MG in Sodium Chloride 0.9% 100 ML IVPB 100 ML IV SCH (10:20)
[2020-04-29] MEDS: HUMULIN R SQ PRN (21:20)
[2020-04-30 05:57] VITALS: O2SAT 96
[2020-04-30] MEDS: DECADRON 10MG INJ. IV SCH (09:37)
[2020-04-30] MEDS: Cipro 500 MG PO SCH (09:37)
[2020-04-30] MEDS: ENOXAPARIN SODIUM SQ SCH (09:39)
[2020-04-30] MEDS: Dilantin 100 MG PO SCH (09:40)
[2020-04-30] MEDS: LIORESAL 10 MG PO SCH ×2 (09:41→12:15)
[2020-04-30] MEDS: Glucophage 500 MG PO SCH (09:41)
[2020-04-30] MEDS: NORVASC 5 MG PO SCH (09:42)
[2020-04-30] MEDS: Neurontin 100 MG PO SCH (09:42)
[2020-04-30] MEDS: Zestril 10 MG PO SCH (09:43)
[2020-04-30] MEDS: Robaxin 500 MG PO SCH (09:43)
--- NOTE | 2020-04-30 10:24 | DS ---
ADMISSION DIAGNOSES: 1) Seizure. 2) COVID. 3) Severe leg weakness secondary to abscess of the spine two years ago. 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 DISCHARGE DIAGNOSES: 1) SEIZURE. 2) COVID. 3) SEVERE LEG WEAKNESS SECONDARY TO ABSCESS OF THE SPINE TWO YEARS AGO. 4) HISTORY OF METHICILLIN-RESISTANT STAPHYLOCOCCUS AUREUS ABSCESS OF THE SPINE POST-SURGERY SEVERAL YEARS AGO. HISTORY: Medications on admission were Norvasc 10, Baclofen 20 q.d., gabapentin 100 t.i.d. for pain, Lisinopril 10 for blood pressure, Metformin 500 q.d. for diabetes, Robaxin [address] of the head was normal. The seizures halted with some Ativan. However, he was confused and disoriented. I did not really have a history on him until the next day. His said that he has been in rehab for two years and had only came home in the last several months. He still goes to rehab. He is not ambulatory. He can move his legs. He never had seizures before. He has a colostomy simply because they had to do that to get the decubs off his butt and back healed up which they are healed up. HOSPITAL COURSE: By the second day the patient was talking normally. He had one small seizure stopped with Ativan. He was loaded with Dilantin and his level came back low normal so he was given some additional Dilantin. The last level was 11. His temperature stayed down. He has no cough, no GI symptoms. Chest x-ray was okay. Basically he is a very interesting patient. He came in with a seizure and had a positive COVID test and no other real symptoms. Not able to do an EEG or MRI. CT was normal. His blood work, calcium, sodium, hemoglobin and everything was normal. No spinal tap was done as he seemed to have no localized signs or symptoms of encephalitis or meningitis. He was closely followed to make sure he has no more seizures. I searched and found three patients who had seizures with onset of COVID. Whether this triggers underlying propensity or more likely just some inflammation is unknown. He will be sent home with the addition of Dilantin 300 mg two b.i.d., plus his usual medications. He is to follow up with a neurologist. He is to get a Dilantin level in one to two weeks. I advised him if the EEG is normal in three months, neurologist might elect to take him off of the seizure medicine. At this time he is back to his normal self. PROGNOSIS: Good.
[2020-04-30] MEDS: REMDESIVIR 100 MG in Sodium Chloride 0.9% 100 ML IVPB 100 ML IV SCH (11:11)
[2020-04-30] MEDS: HUMULIN R SQ PRN (12:15)
[2020-04-30 12:39] VITALS: BP 142/78
[2020-04-30 15:52] VITALS: PULSE 76
== END 2020-04-30 16:35 | disposition home or self-care (01) | DRG 100 ==
LOC: ED 20:23 → MED SURG 04-26 03:13
PROVIDERS: ADMIT Family Medicine; ATTEND Family Medicine
DX: R56.9 Unspecified convulsions (principal); U07.1 COVID-19; L02.212 Cutaneous abscess of back [any part, except buttock and flank]; R53.1 Weakness; Z86.14 Personal history of Methicillin resistant Staphylococcus aureus infection; Z79.899 Other long term (current) drug therapy; Z93.3 Colostomy status; E11.9 Type 2 diabetes mellitus without complications; I10 Essential (primary) hypertension; M54.9 Dorsalgia, unspecified
CPT/HCPCS: 0097U; 36000; 36415; 36600; 51702; 70450; 71045; 71260; 80048; 80053; 80185; 80307; 81001; 82140; 82375; 82803; 82947; 85025; 85027; 85379; 86308; 87077; 87086; 87186; 87400; 87651; 93005; 93041; 94760; 94762; 94799; 96360; 96365; 96374; 96375; 99284; 99291; J1100; J1650; J1815; J1956; J2060; Q2009; U0003; A9270-GY